=== PATIENT | male | born 1950 | race Two or more races ===

== ENCOUNTER 2024-01-13 06:00 | Day surgery (SDC) | payer OTHER ==
[2024-01-09 11:12] LABS: HEMATOCRIT 42.4 % (39.0-48.0); HEMOGLOBIN 14.6 g/dL (13-16.00); MEAN CELL VOLUME 91.3 fL (80.0-100.00); MEAN CORPUSCULAR HEMOGLOBIN 31.5 pg (27.00-32.0); MEAN CORPUSCULAR HGB CONC 34.5 g/dl (32.0-36.0); PLATELET COUNT 135 K/uL (150-450); RED BLOOD COUNT 4.64 M/uL (4.00-6.00); RED CELL DISTRIBUTION WIDTH 14.8 % (11.5-14.5)
[2024-01-09 11:34] LABS: PH,URINE 5.5 (5.0-8.0); URINE APPEARANCE Clear; URINE BILIRRUBIN Negative (NEGATIVE); URINE BLOOD Negative; URINE COLOR Yellow; URINE GLUCOSE Negative (NEGATIVE); URINE LEUKOCYTE Small; URINE NITRATE Negative; URINE PROTEIN Negative (NEGATIVE); URINE UROBILINOGEN 0.2 E.U./dl
[2024-01-09 11:39] LABS: URINE BACTERIA 17.6 uL (0.0-1933); URINE EPITHELIAL CELLS 2.6 uL (0.0-38.8); URINE RBC 9.1 uL (0.0-20.8); URINE WBC 55.4 uL (0.0-23.2)
[2024-01-09 11:41] LABS: INR 1.28; PARTIAL THROMBOPLASTIN TIME 30.9 SECONDS (22.0-34.0); PROTHROMBIN TIME 13.2 SECONDS (9.0-11.5)
[2024-01-09 11:46] LABS: CALCIUM 9.3 mg/dL (8.5-10.1); CREATININE SERUM 0.96 mg/dL (0.70-1.30); GFR 77.21; POTASSIUM 4.65 mEq/L (3.5-5.1)
[~2024-01-13 06:00] MED LIST: TAMS0.4C PO; ZESTRIL40 M1 PO
[2024-01-13] MEDS ORDERED: CHLORHEXIDINE GLUCONATE 120 ML BOTTLE TOP ONE (18:15)
[2024-01-13] MEDS ORDERED: GENTAMICIN SULFATE 40 MG/ML VIAL IV SCH (18:15)
== END 2024-01-13 21:45 | disposition home or self-care (01) ==
LOC: CIR.AMB 06:00
PROVIDERS: ATTEND Urology
DX: N40.1 Benign prostatic hyperplasia with lower urinary tract symptoms (principal); R33.9 Retention of urine, unspecified; Z88.6 Allergy status to analgesic agent